=== PATIENT | female | born 1980 | race Caucasian/White ===

== ENCOUNTER 2017-05-04 11:12 | Emergency (ER) | payer BC, OTHER ==
[2017-05-04 11:30] VITALS: BP 127/62
--- NOTE | 2017-05-04 11:58 | UC ---
Abdominal Pain Female HPI - HPI Summary HPI Summary: 36 YO FEMALE HAS HAD INTERMITTENT LOWER ABD PAIN X 3 DAYS TODAY IT GOT SIGNIFICANTLY WORSEN (ACUTELY) BECAME DIAPHORETIC AND HAD VOMITING AND DIARRHEA HURTS TO MOVE NO UTI SYMPTOMS - History of Current Complaint Chief Complaint: UCAbdominalPain Stated Complaint: LOWER RT ABD PAIN/APPENDIX? Time Seen by Provider: 05/04/17 11:30 Hx Obtained From: Patient Hx Last Menstrual Period: 04/13/17 Onset/Duration: Sudden Onset, Lasting Days, Worse Since - THIS AM Severity Initially: Mild Severity Currently: Moderate - WAS SEVERE EARLIER Pain Intensity: 5 Pain Scale Used: 0-10 Numeric Location: Other - RLQ>>LLQ Radiates: No Character: Colicy Aggravating Factor(s): Movement Alleviating Factor(s): Nothing Associated Signs and Symptoms: Positive: Diaphoresis, Nausea, Vomiting, Diarrhea Allergies/Adverse Reactions: Allergies Allergy/AdvReac Type Severity Reaction Status Date / Time No Known Allergies Allergy Verified 05/04/17 11:30 PMH/Surg Hx/FS Hx/Imm Hx Previously Healthy: Yes - Surgical History Surgical History: None - Family History Known Family History: Positive: Hypertension, Other - NO FHX KIDNEY STONE - Social History Alcohol Use: None Substance Use Type: None Smoking Status (MU): Never Smoked Tobacco Have You Smoked in the Last Year: No - Immunization History Most Recent Influenza Vaccination: declined Most Recent Tetanus Shot: declined during Most Recent Pneumonia Vaccination: never Review of Systems Constitutional: Negative Skin: Negative Eyes: Negative ENT: Negative Respiratory: Negative Cardiovascular: Negative Gastrointestinal: Abdominal Pain, Vomiting, Diarrhea Genitourinary: Negative Motor: Negative Neurovascular: Negative Musculoskeletal: Negative Neurological: Negative Psychological: Negative All Other Systems Reviewed And Are Negative: Yes Physical Exam Triage Information Reviewed: Yes Appearance: Pain Distress Vital Signs: Initial Vital Signs Temp 98.6 F 05/04/17 11:25 Pulse 86 05/04/17 11:25 Resp 18 05/04/17 11:25 BP 127/62 05/04/17 11:25 Pulse Ox 100 05/04/17 11:25 Eye Exam: Normal ENT: Positive: Hearing grossly normal. Negative: Nasal congestion, Nasal drainage, Tonsillar swelling, Tonsillar exudate, Trismus, Muffled/hoarse voice Neck: Positive: Supple, Nontender, No Lymphadenopathy Respiratory: Positive: Lungs clear, Normal breath sounds, No respiratory distress, No accessory muscle use Cardiovascular: Positive: RRR, No Murmur, Pulses Normal Abdomen Description: Positive: No Organomegaly, Guarding. Negative: Nontender - MARKEDLY TENDER RLQ>>LLQ, CVA Tenderness (R), CVA Tenderness (L) Musculoskeletal: Positive: No Edema Neurological: Positive: Alert Psychological Exam: Normal Skin Exam: Normal Abd Pain Female Course/Dx - Course Course Of Treatment: URINE DIP (-), UHCG (-). I ADVISED TRANSFER TO [facility] FOR FURTHER EVALUATION. SHE FLATLY REFUSED EMS TRANSFER STATING SHE NEVER WOULD HAVE COME HERE HAD SHE KNOW WE COULDN'T EVALUATE HER HERE. ADVISED HER TO REMAIN NPO UNTIL SEEN - Differential Dx/Diagnosis Differential Diagnosis: Appendicitis, Diverticulitis, Ovarian Cyst, Pelvic Inflammatory Disease, Renal Colic, Other Provider Diagnoses: ABDOMINAL PAIN OF UNCERTAIN CAUSE Discharge - Discharge Plan Condition: Stable Disposition: HOME Patient Education Materials: Hand Fracture (ED) Referrals: Valdemar Macario MD [Medical Doctor] - As Soon As Possible Additional Instructions: non displaced fracture base of 5th metacarpal rest elevate ice
== END 2017-05-04 11:55 | disposition home or self-care (01) ==
LOC: UCEAST 11:12
DX: R10.31 Right lower quadrant pain (principal)
CPT/HCPCS: 81003; 84702; 99212; G0463

== ENCOUNTER 2017-05-04 12:18 | Emergency (ER) | payer BC ==
[2017-05-04 12:25] VITALS: BP 107/62
[2017-05-04] MEDS ORDERED: NS 0.9% 1000 ML* 1,000 ML IV ONE (12:42)
[2017-05-04 13:27] LABS: Hematocrit 44 % (35-47); Hemoglobin 15.1 g/dl (12.0-16.0); Mean Corpuscular HGB Conc 34 g/dl (31-36); Mean Corpuscular Hemoglobin 30 pg (27-31); Mean Corpuscular Volume 88 fL (80-97); Mean Platelet Volume 8 um3 (7.4-10.4); Red Blood Count 5.04 10^6/ul (4.0-5.4); Red Cell Distribution Width 13 % (10.5-15); White Blood Count 10.9 10^3/ul (3.5-10.8)
[2017-05-04 13:29] LABS: Urine Bilirubin Negative (Negative); Urine Glucose Negative (Negative); Urine Nitrite Negative (Negative)
[2017-05-04 13:44] LABS: ALT 10 U/L (7-52); AST 15 U/L (13-39); Albumin 4.2 g/dL (3.2-5.2); Alkaline Phosphatase 81 U/L (34-104); Anion Gap 7 mmol/L (2-11); BUN/Creatinine Ratio 15.9 (8-20); Blood Urea Nitrogen 11 mg/dL (6-24); CO2 Carbon Dioxide 23 mmol/L (22-32); Calcium 9.3 mg/dL (8.6-10.3); Chloride 105 mmol/L (101-111); EGFR African American 123.8 (>60); EGFR Non-African American 96.3 (>60); Glucose 104 mg/dL (70-100); Lipase < 10 U/L (11.0-82.0); Potassium 3.7 mmol/L (3.5-5.0); Sodium 135 mmol/L (133-145); Total Protein 7.2 g/dL (6.4-8.9)
--- NOTE | 2017-05-04 14:00 | RAD ---
HISTORY: Right lower quadrant pain COMPARISONS: None TECHNIQUE: Multiple transverse and longitudinal ultrasound images were obtained of the pelvis using grayscale, color Doppler, and spectral Doppler imaging using the transabdominal transducer. FINDINGS: UTERUS: The uterus measures 6.9 x 2.8 x 5.5 cm. The uterus is normal in shape, size, contour, and echotexture. ENDOMETRIUM: The endometrial stripe is smooth. The endometrium measures 0.7 cm in thickness. 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 CUL-DE-SAC: There is a small amount of simple fluid within the cul-de-sac. This may be physiologic in a reproductive age female. RIGHT OVARY: The right ovary measures 4.4 x 4.5 x 3.1 cm. There is a 4.4 x 2.4 x 4 cm simple right ovarian cyst. Normal arterial and venous waveforms are identifiable within the ovary on spectral Doppler imaging. LEFT OVARY: The left ovary measures 3.6 x 1.9 x 2.6 cm. Normal arterial and venous waveforms are identifiable within the ovary on spectral Doppler imaging. BLADDER: The bladder is not well visualized. IMPRESSION: 1. NO SONOGRAPHIC FEATURES OF TORSION. PLEASE NOTE THAT PARTIAL OR INTERMITTENT TORSION MAY BE SONOGRAPHICALLY NORMAL. 2. 4.4 CM RIGHT OVARIAN CYST. 3. SMALL AMOUNT OF FREE FLUID WITHIN THE CUL-DE-SAC. THIS MAY BE PHYSIOLOGIC WITHIN A REPRODUCTIVE AGE FEMALE
[2017-05-04] MEDS ORDERED: Iohexol 300* (CONTRAST) 10 ML SDV IV ONE (14:03)
--- NOTE | 2017-05-04 14:34 | ED ---
GI/ HPI - HPI Summary HPI Summary: 36F presents with intense RLQ pain for 3 days. She states today her pain became extreme and that she vomited once. She states she has had two normal BM without any change in pain. She denies any fever, dysuria, vaginal discharge, hematuira, flank pain, urgency, or frequency. She denies any constipation or diarrhea. She has never had this pain before. She states the pain starts in her RLQ and radiates to her LLQ. She states the pain is sharp in nature. She states she has never had this pain before but it feels most like labor pain. She denies any previous abdominal surgeries. She still has an appetite. Her last meal was this morning for breakfast. - History of Current Complaint Chief Complaint: EDAbdPain Time Seen by Provider: 05/04/17 12:28 Stated Complaint: ABD/BACK PAIN Pain Intensity: 3 - Allergy/Home Medications Allergies/Adverse Reactions: Allergies Allergy/AdvReac Type Severity Reaction Status Date / Time No Known Allergies Allergy Verified 05/04/17 11:30 PMH/Surg Hx/FS Hx/Imm Hx Endocrine/Hematology History: Denies: Hx Diabetes Cardiovascular History: Denies: Hx Hypertension History: Denies: Hx Renal Disease Psychiatric History: Reports: Hx Anxiety Infectious Disease History: No Infectious Disease History: Denies: Traveled Outside the [place] in Last 30 Days - Family History Known Family History: Positive: Hypertension, Other - NO FHX KIDNEY STONE - Social History Alcohol Use: None Substance Use Type: Reports: None Smoking Status (MU): Never Smoked Tobacco Have You Smoked in the Last Year: No Review of Systems Negative: Fever Negative: Chest Pain Negative: Shortness Of Breath Positive: Abdominal Pain, Vomiting, Nausea. Negative: Diarrhea Negative: flank pain All Other Systems Reviewed And Are Negative: Yes Physical Exam Triage Information Reviewed: Yes Vital Signs On Initial Exam: Initial Vitals Temp Pulse Resp BP Pulse Ox 97.6 F 80 16 107/62 99 05/04/17 12:22 05/04/17 12:22 05/04/17 12:22 05/04/17 12:22 05/04/17 12:22 Vital Signs Reviewed: Yes Appearance: Positive: Well-Appearing Skin: Positive: Warm, Dry Head/Face: Positive: Normal Head/Face Inspection Eyes: Positive: Normal, Conjunctiva Clear Respiratory/Lung Sounds: Positive: Clear to Auscultation, Breath Sounds Present Cardiovascular: Positive: Normal, RRR Abdomen Description: Positive: Soft, Other: - mild tenderness in RLQ, neg rovsings, obturator, no rebound tenderness Bowel Sounds: Positive: Present Diagnostics - Vital Signs Vital Signs Temp Pulse Resp BP Pulse Ox 05/04/17 13:51 97.6 F 80 16 107/62 99 05/04/17 12:22 97.6 F 80 16 107/62 99 - Laboratory Lab Results: Lab Results 05/04/17 05/04/17 05/04/17 Range/Units 13:15 13:15 13:15 WBC 10.9 H (3.5-10.8) 10^3/ul RBC 5.04 (4.0-5.4) 10^6/ul Hgb 15.1 (12.0-16.0) g/dl Hct 44 (35-47) % MCV 88 (80-97) fL MCH 30 (27-31) pg MCHC 34 (31-36) g/dl RDW 13 (10.5-15) % Plt Count 273 (150-450) 10^3/ul MPV 8 (7.4-10.4) um3 Neut % (Auto) 83.8 H (38-83) % Lymph % (Auto) 10.2 L (25-47) % [place] % (Auto) 5.1 (1-9) % Eos % (Auto) 0.3 (0-6) % Baso % (Auto) 0.6 (0-2) % Absolute Neuts (auto) 9.1 H (1.5-7.7) 10^3/ul Absolute Lymphs (auto) 1.1 (1.0-4.8) 10^3/ul Absolute Monos (auto) 0.6 (0-0.8) 10^3/ul Absolute Eos (auto) 0 (0-0.6) 10^3/ul Absolute Basos (auto) 0.1 (0-0.2) 10^3/ul Absolute Nucleated RBC 0.01 10^3/ul Nucleated RBC % 0.1 Sodium 135 (133-145) mmol/L Potassium 3.7 (3.5-5.0) mmol/L Chloride 105 (101-111) mmol/L Carbon Dioxide 23 (22-32) mmol/L Anion Gap 7 (2-11) mmol/L BUN 11 (6-24) mg/dL Creatinine 0.69 (0.51-0.95) mg/dL Est GFR ( Amer) 123.8 (>60) Est GFR (Non-Af Amer) 96.3 (>60) BUN/Creatinine Ratio 15.9 (8-20) Glucose 104 H (70-100) mg/dL Calcium 9.3 (8.6-10.3) mg/dL Total Bilirubin 0.40 (0.2-1.0) mg/dL AST 15 (13-39) U/L ALT 10 (7-52) U/L Alkaline Phosphatase 81 (34-104) U/L C-React Prot High Sens 2.93 mg/L Total Protein 7.2 (6.4-8.9) g/dL Albumin 4.2 (3.2-5.2) g/dL Globulin 3.0 (2-4) g/dL Albumin/Globulin Ratio 1.4 (1-3) Lipase < 10 L (11.0-82.0) U/L Beta HCG, Quant < 0.60 mIU/mL Urine Color Yellow Urine Appearance Clear Urine pH 6.0 (5-9) Ur Specific [place] 1.014 (1.010-1.030) Urine Protein Negative (Negative) Urine Ketones Negative (Negative) Urine Blood Negative (Negative) Urine Nitrate Negative (Negative) Urine Bilirubin Negative (Negative) Urine Urobilinogen Negative (Negative) Ur Leukocyte Esterase Negative (Negative) Urine Glucose Negative (Negative) Result Diagrams: 05/04/17 13:15 05/04/17 13:15 Lab Statement: Any lab studies that have been ordered have been reviewed, and results considered in the medical decision making process. - Ultrasound No standard instances Ultrasound Interpretation: Positive (See Comments) - IMPRESSION: 1. NO SONOGRAPHIC FEATURES OF TORSION. PLEASE NOTE THAT PARTIAL OR INTERMITTENT TORSION MAY BE SONOGRAPHICALLY NORMAL. 2. 4.4 CM RIGHT OVARIAN CYST. 3. SMALL AMOUNT OF FREE FLUID WITHIN THE CUL-DE-SAC. THIS MAY BE PHYSIOLOGIC WITHIN A REPRODUCTIVE AGE FEMALE Ultrasound Interpretation Completed By: Radiologist DANIELE Course/Dx - Course Assessment/Plan: 36F presents with intense RLQ pain for 3 days. She states today her pain became extreme and that she vomited once. She denies any other symptoms. She has never had this pain before. She states the pain starts in her RLQ and radiates to her LLQ. She denies any previous abdominal surgeries. She is concerned about her appendix. on exam neg appendicitis signs but is tender in RLQ, labs wbc 10.9, crp 2.2, u/a normal. u/s shows right cyst. explained to patient that only definitive way to know if not appendix is to do CT. patient drank contrast and now refuses CT. discussed pain likely from cyst but can not rule out appendicitis. patient states she is leaving. did not have patient sign out AMA but advised against leaving due to potenital for appendicitis can not be ruled out at this point. told if vomiting continues or develops fever to return to scan. patient understands and agrees with plan - Diagnoses Differential Diagnoses - Female: Appendicitis, Ovarian Cyst, Urinary Tract Infection Provider Diagnoses: Abdominal pain, Right ovarian cyst Discharge - Discharge Plan Condition: Good Disposition: HOME Patient Education Materials: Ovarian Cyst (ED) Referrals: [facility] [Outside] Additional Instructions: Take Tylenol or ibuprofen every 6 hours for pain Follow up with obgyn Return to ED if develop any new or worsening symptoms
== END 2017-05-04 14:52 | disposition home or self-care (01) ==
LOC: ED 12:18
DX: N83.201 Unspecified ovarian cyst, right side (principal); R10.31 Right lower quadrant pain; R11.2 Nausea with vomiting, unspecified
CPT/HCPCS: 36415; 76856; 80053; 81003; 83690; 84702; 85025; 86141; 99282

== ENCOUNTER 2018-03-13 19:38 | Inpatient (IN) | payer BC, OTHER ==
--- NOTE | 2018-03-13 20:36 | HP ---
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 CV Complaint: No Respiratory: Shortness of Breath: No Genitourinary: No Dysuria, No Bleeding Musculoskeletal: Back Pain, Contractions Neurological: No Headache, No Visual Changes Movement: Absent - Comments Patient with increase in nausea, no vomiting; "shaky". Loose stools x 48 hours. Last movement at 1300 today. Exam Allergies/Adverse Reactions: Allergies No Known Allergies Allergy (Verified 05/04/17 11:30) BP 143/113; HR 123; T 99.5; R 20 - Measurements Height: 5 ft 4 in Weight: 211 lb Weight in lbs: 211 Body Mass Index (BMI): 36.2 Pre- Weight: 180 lb Weight Gained This : 31 lbs and 0 ozs - Exam Abdomen: No Upper Quadrant Pain Breast: Breast Exam Deferred CVA: No CVA Tenderness Extremities: Edema - +2 bilateral pedal edema Heart: Normal Rhythm/Heart Sounds HEENT: No Significant Findings Lungs: Clear Bilaterally Rectal: Rectal Exam Deferred Thyroid: No Thyromegaly - Abdominal Exam Abdomen Exam: Non-Tender, Fundal Height Consistent with Dates - Ultrasound/Biophysical Profile Ultrasound Status: Not Done Targeted Exam Findings See L&D Outpatient Visit Provider Note for Findings: N/A Estimated Weight: 5lbs Cervical Exam: 2cm Effacement: 80% Station: 0, +1 Presenting Part: Vertex Membrane Status: Intact Bleeding/Discharge: None EFM Findings - External Monitor Findings External Monitor Findings Comment: Absent, demise Assessment/Plan - Reason for Visit Reason for Visit: Pt presents to L & D for induction of labor for confirmed demise at 36 3/ 7 wks in office today. - Obstetrical Risk Factors Obstetrical Risk Factors: Demise - Plan Plan: Induction - Date/Time of Admission Date of Admission: 03/13/18 Time of Admission: 20:46
[2018-03-13] MEDS ORDERED: Oxytocin in LR* 20 UNITS/1,000 ML BAG IVPB SCH (21:00)
[2018-03-13 21:12] LABS: ABS Basophils 0 10^3/ul (0-0.2); ABS Eosinophils 0 10^3/ul (0-0.6); ABS Lymphocytes 1.4 10^3/ul (1.0-4.8); ABS Monocytes 0.7 10^3/ul (0-0.8); ABS Neutrophils 11.8 10^3/ul (1.5-7.7); ABS Nucleated RBC 0 10^3/ul; Eosinophil % 0.1 % (0-6); Hematocrit 38 % (35-47); Hemoglobin 12.7 g/dl (12.0-16.0); Lymphocyte % 10.2 % (25-47); Mean Corpuscular HGB Conc 34 g/dl (31-36); Mean Corpuscular Hemoglobin 29 pg (27-31); Mean Corpuscular Volume 85 fL (80-97); Mean Platelet Volume 8.9 um3 (7.4-10.4); Nucleated Red Blood Cells % 0; Platelet Count 233 10^3/ul (150-450); Red Cell Distribution Width 14 % (10.5-15); White Blood Count 13.9 10^3/ul (3.5-10.8)
[2018-03-13 21:47] LABS: EGFR Non-African American 132.7 (>60)
[2018-03-13] MEDS ORDERED: OBEPIDURAL* 250 ML EPIDURAL ONE (23:29)
[2018-03-14 00:19] LABS: Platelet Count 240 10^3/ul (150-450)
[2018-03-14 00:47] LABS: INR 0.84 (0.77-1.02)
[2018-03-14 01:13] LABS: Schistocytes ABSENT
[2018-03-14] MEDS ORDERED: Sodium Citrate/Citric Acid* 15 ML UDC PO PRN (01:53)
[2018-03-14] MEDS ORDERED: Famotidine TAB* 20 MG PO PRN (01:53)
[2018-03-14] MEDS ORDERED: Phenylephrine IV* 40 MCG/ML 10 ML SYRINGE IV PUSH PRN (01:53)
[2018-03-14] MEDS ORDERED: OBEPIDURAL* 250 ML EPIDURAL SCH (02:00)
[2018-03-14] MEDS ORDERED: Acetaminophen TAB* 325 MG PO PRN (08:36)
[2018-03-14] MEDS ORDERED: Dibucaine 1% 28.35 GM TUBE PR PRN (08:36)
[2018-03-14] MEDS ORDERED: Ibuprofen TAB* 600 MG PO PRN (08:36)
[2018-03-14] MEDS ORDERED: Misoprostol TAB* 200 MCG PR ONE (08:36)
[2018-03-14] MEDS ORDERED: Witch Hazel PAD* JAR TOPICAL PRN (08:36)
[2018-03-14] MEDS ORDERED: Oxytocin in LR* 20 UNITS/1,000 ML BAG IVPB SCH (09:00)
[2018-03-14] MEDS: Docusate CAP* 100 MG PO SCH ×2 (11:39→16:48)
[2018-03-15 06:32] LABS: ABS Basophils 0 10^3/ul (0-0.2); ABS Eosinophils 0 10^3/ul (0-0.6); ABS Lymphocytes 1.6 10^3/ul (1.0-4.8); ABS Monocytes 0.7 10^3/ul (0-0.8); ABS Neutrophils 7.9 10^3/ul (1.5-7.7); ABS Nucleated RBC 0 10^3/ul; Eosinophil % 0.5 % (0-6); Hematocrit 33 % (35-47); Hemoglobin 11.3 g/dl (12.0-16.0); Lymphocyte % 15.8 % (25-47); Mean Corpuscular HGB Conc 34 g/dl (31-36); Mean Corpuscular Hemoglobin 29 pg (27-31); Mean Corpuscular Volume 86 fL (80-97); Mean Platelet Volume 8.6 um3 (7.4-10.4); Nucleated Red Blood Cells % 0; Platelet Count 215 10^3/ul (150-450); Red Blood Count 3.85 10^6/ul (4.0-5.4); Red Cell Distribution Width 14 % (10.5-15); White Blood Count 10.2 10^3/ul (3.5-10.8)
[2018-03-15 08:11] VITALS: BP 123/63
[2018-03-15] MEDS: Docusate CAP* 100 MG PO SCH (09:00)
[2018-03-15] MEDS ORDERED: Ferrous Gluconate TAB* 324 MG TAB PO SCH (09:00)
== END 2018-03-15 11:31 | disposition home or self-care (01) | DRG 560 ==
LOC: MCHOBOUT 19:38 → MCHOB 19:40
PROVIDERS: ADMIT Midwife; ATTEND Midwife
PROC: 10907ZC Drainage of Amniotic Fluid, Therapeutic from Products of Conception, Via Natural or Artificial Opening (ICD-10-PCS; principal; 2018-03-13)
PROC: 3E033VJ Introduction of Other Hormone into Peripheral Vein, Percutaneous Approach (ICD-10-PCS; 2018-03-13)
PROC: 10E0XZZ Delivery of Products of Conception, External Approach (ICD-10-PCS; 2018-03-13)
PROC: 4A1HX4Z Monitoring of Products of Conception, Cardiac Electrical Activity, External Approach (ICD-10-PCS; 2018-03-13)
DX: O36.4XX0 Maternal care for intrauterine death, not applicable or unspecified (principal); O34.03 Maternal care for unspecified congenital malformation of uterus, third trimester; Z3A.36 36 weeks gestation of pregnancy; Z37.1 Single stillbirth; Q51.2 Other doubling of uterus
CPT/HCPCS: 36415; 80053; 83030; 84439; 84443; 85025; 85049; 85362; 85384; 85610; 85613; 85730; 86644; 86645; 86777; 86778; 86850; 86900; 86901; 87070; 88307; A9270-GY

== ENCOUNTER 2018-04-20 07:36 | Emergency (ER) | payer OTHER ==
[2018-04-20 08:02] VITALS: BP 126/80
--- NOTE | 2018-04-20 10:16 | UC ---
Sheryl Segovia Elizabeth, scribed for Jaqueline Breaux DO on 04/20/18 at 0823 . Skin Complaint HPI - HPI Summary HPI Summary: This patient is a 37 year old F presenting to [facility] with a chief complaint of swelling and pain in her left toes since 1 week ago. The patient notes that for the two toes were initially itchy but resolved within the first 2 days. The patient reports that 4 days ago the toes became more inflamed, swollen, and red. The patient denies that the area of redness has increased in size. The patient rates the pain 8/10 in severity. Symptoms aggravated by bearing weight or palpation. The patient notes she has tried Epsom salt soaks in hot water but they have not alleviated her symptoms. Patient denies fever, chills, headache, cough, nausea, vomiting. - History of Current Complaint Time Seen by Provider: 04/20/18 07:49 Stated Complaint: FOOT COMPLAINT Hx Obtained From: Patient Hx Last Menstrual Period: 04/13/17 Onset/Duration: Gradual Onset, Lasting Weeks - 1 week ago, Still Present, Worse Since - 5 days ago Skin Exposure Onset/Duration: Weeks Ago - 1 week ago Timing: Constant Onset Severity: Mild Current Severity: Moderate Pain Intensity: 8 Pain Scale Used: 0-10 Numeric Location: Foot (Left) Character: Swelling, Redness Aggravating Factor(s): Touch, Other - bearing weight Alleviating Factor(s): Nothing Associated Signs & Symptoms: Negative: Nausea, Vomiting, Fever, Chills, Cough - Allergy/Home Medications Allergies/Adverse Reactions: Allergies Allergy/AdvReac Type Severity Reaction Status Date / Time No Known Allergies Allergy Verified 04/20/18 07:56 Home Medications: Home Medications diPHENhydraMINE PO* [Benadryl PO 25 MG TAB*] 50 mg PO ONCE PRN 04/20/18 [ History Confirmed 04/20/18] Review of Systems Constitutional: Negative - NEGATIVE FEVER, NEGATIVE CHILLS Skin: Rash - redness on left toes Respiratory: Negative - NEGATIVE COUGH Gastrointestinal: Negative - NEGATIVE VOMITING, NEGATIVE NAUSEA Musculoskeletal: Edema - in left toes Neurological: Negative - NEGATIVE HEADACHE All Other Systems Reviewed And Are Negative: Yes PMH/Surg Hx/FS Hx/Imm Hx Other Endocrine History: NEGATIVE DIABETES Other GI/ History: ovarian cyst - Surgical History Surgical History: None - Family History Known Family History: Positive: Hypertension, Other - NO FHX KIDNEY STONE - Social History Alcohol Use: None Substance Use Type: None Smoking Status (MU): Never Smoked Tobacco Have You Smoked in the Last Year: No - Immunization History Most Recent Influenza Vaccination: declined Most Recent Tetanus Shot: declined during Most Recent Pneumonia Vaccination: never Physical Exam - Summary Physical Exam Summary: Appearance: Well-Appearing, No Pain Distress, Well-Nourished Eyes: conjunctiva clear, no discharge ENT: Hearing grossly normal, no muffled/hoarse voice. Neck: Normal, Supple Respiratory/Lung Sounds: Lungs clear, Normal breath sounds, No respiratory distress, No accessory muscle use Cardiovascular: RRR, No murmur Musculoskeletal: left 4th and 5th toes and adjacent forefoot exquisitely tender to palpation and ROM, Neurological: Alert, muscle tone normal Psychiatric:Normal, age appropriate behavior Skin: Dry, 9cm area of erythema over the dorsal aspect over the 4th and 5th toes and adjacent forefoot, hot to the touch Triage Information Reviewed: Yes Vital Signs Reviewed: Yes Course/Dx - Course Course Of Treatment: This patient is a 37 year old F reporting redness, swelling and pain in her left toes since 1 week ago. The patient notes that for the two toes were initially itchy but resolved within the first 2 days. In the [facility] course the patient was given an ice pack. Patient will be discharged with prescription for Cephalexin and follow up from [facility]. The patient is agreeable with this plan. Medications reviewed. Allergies reviewed. - Diagnoses Provider Diagnoses: cellulitis Discharge - Sign-Out/Discharge Documenting (check all that apply): Discharge/Admit/Transfer - Discharge Plan Condition: Stable Disposition: HOME Discharge Disposition Comment: discharge home Patient Education Materials: Cellulitis (ED) Referrals: No Primary Care Phys,NOPCP [Primary Care Provider] - 2 Days [facility] [Outside] Additional Instructions: CEPHALEXIN: The antibiotic you've been prescribed is a member of the cephalosporin class. This type of antibiotic covers a wide variety of infections, including those of the skin, lungs, and urinary tract. It's useful for staph infections. This antibiotic is slightly similar to the penicillin family. In rare cases , a person who is allergic to penicillin will also be allergic to this medication. If you have had a severe allergic reaction to penicillin, and have not taken this antibiotic since that time, notify your doctor. Antibiotics which cover many germs ("broad spectrum" antibiotics) are more likely to cause diarrhea or "yeast" infections. Women prone to vaginal yeast problems may suffer an attack after taking this antibiotic. In infants, oral thrush (white spots "stuck" on the cheek) or yeast diaper rash may result. See your doctor if these problems occur. Call at once if you develop itching, hives , shortness of breath, or lightheadedness. ANYTIME YOU TAKE AN ANTIBIOTIC, IT IS IMPORTANT TO REPLENISH THE BODY'S SUPPLY OF "GOOD BACTERIA." YOU CAN GET GOOD BACTERIA FROM HIGH QUALITY CULTURED FOODS SUCH LOCAL YOGURT, SOUR KRAUT, [place] SUSANNE, NATURALLY FERMENTED PICKLES AND PROBIOTIC DRINKS. YOU CAN ALSO GET GOOD BACTERIA FROM A PROBIOTIC SUPPLEMENT. FOLLOW-UP CARE: You should establish with a private physician for follow-up care in 2 days. If you are unable to get a timely appointment, or if you are worsening, call us or return for re-evaluation. An additional resource available to assist in finding the appropriate physician for your health care needs is the [facility]erral Center. You may contact them by calling [phone]. The documentation as recorded by the Sheryl matos Elizabeth accurately reflects the service I personally performed and the decisions made by me, Jaqueline Breaux DO.
[2018-04-20 14:08] LABS: Uric Acid 5.9 mg/dL (2.3-6.6)
== END 2018-04-20 08:35 | disposition home or self-care (01) ==
LOC: UCEAST 07:36
DX: L03.032 Cellulitis of left toe (principal); Z82.49 Family history of ischemic heart disease and other diseases of the circulatory system
CPT/HCPCS: 36415; 84550; 85652; 86141; 99211; G0463

== ENCOUNTER 2019-04-02 11:05 | Observation (INO) | payer BC ==
--- NOTE | 2019-04-02 10:30 | PN ---
L&D Outpatient: Visit - Reproductive Information Estimated Due Date: 06/25/19 Gestational Age: 28 Weeks and 0 Days : 3 Para: 2 - Reason for Visit Visit Reason: pt with episode of leaking yesterday night - Antepartal Records Antepartal Record: Reviewed, Uncomplicated - up till now - Patient History Patient History Significant: Yes Patient History Significant For: iufd at term last hemorrhage 1 st Review of Systems Constitutional: Comfortable CV Complaint: No Respiratory: Shortness of Breath: No Gastrointestinal: Diarrhea Genitourinary: Bleeding, Leaking Fluid, No Dysuria Musculoskeletal: No Complaint Neurological: No Headache Movement: Normal L&D Outpatient: Exam Vitals - Most Recent: fhr 135 Lab Values - Entire Visit: ROM + is positive for membrane rupture - Cervical Exam Cervical Exam: 3 cm/ 80%/ -2 - Abdominal Exam Abdomen Exam: Non-Tender, Fundal Height Consistent with Dates - Membranes Membrane Status: SROM Hours Since SROM: 11 - Ultrasound/Biophysical Profile Ultrasound Status: Bedside Exam Biophysical Profile: Normal Gross Body Movements, Normal Muscle Tone, Normal Reactive NST, Abnormal Amniotic Fluid - low fluid, Abnormal Breathing - too early - Exam Findings abdomen nontender EFM Findings - External Monitor Findings Baseline Heart Rate: 135 External Monitor Findings: Accelerations Present, Variability Moderate Contractions: Irregular, Mild, < 45 Seconds L&D Outpatient: Asses/Plan Assessment: [age] yo at 28 weeks with pprom/ d/w Strong and agreed to transfer will check visually prior to transfer accepting dr Chris Puentes received betamenthasone 12mg im azthromycin 1 gm/ then ampicilin 2gms q 6hrs starting magnesium 4 gm bolus and 2 gms /hr - Discharge Diagnosis Discharge Diagnosis: Other - PPROM at 28 weeks Plan: Transfer to Other Facility - [facility]
[2019-04-02 12:01] LABS: Urine Appearance Cloudy; Urine Bacteria Absent (Absent); Urine Bilirubin Negative (Negative); Urine Blood 1+ (Negative); Urine Color Yellow; Urine Glucose Negative (Negative); Urine Ketones 2+ (Negative); Urine Nitrite Negative (Negative); Urine Protein Negative (Negative); Urine Red Blood Cell 2+(6-10/hpf) (Absent); Urine Specific Gravity 1.019 (1.010-1.030); Urine Squamous Epithelial Cell Present (Absent); Urine Urobilinogen Negative (Negative); Urine White Blood Cell Trace(0-5/hpf) (Absent)
[2019-04-02] MEDS ORDERED: Azithromycin TAB* 250 MG PO ONE (12:02)
[2019-04-02] MEDS ORDERED: Magnesium Sulf 4 GM/100 ML IV* 4,000 MG/100 ML BAG IVPB ONE (12:05)
[2019-04-02] MEDS ORDERED: Betamethasone INJ* 6 MG/ML 5 ML VIAL (30 MG) IM ONE (12:05)
[2019-04-02] MEDS ORDERED: NS 0.9% 100 ML* 100 ML ONE ×2 (12:09→12:32)
[2019-04-02 12:56] LABS: ABS Lymphocytes 0.8 10^3/ul (1.0-4.8); ABS Monocytes 0.5 10^3/ul (0-0.8); ABS Neutrophils 8.2 10^3/ul (1.5-7.7); Eosinophil % 0.3 %; Hematocrit 39 % (35-47); Hemoglobin 13.9 g/dL (12.0-16.0); Lymphocyte % 8.3 %; Mean Corpuscular HGB Conc 35 g/dL (31-36); Mean Corpuscular Hemoglobin 31 pg (27-31); Mean Corpuscular Volume 88 fL (80-97); Mean Platelet Volume 8.7 fL (7.4-10.4); Platelet Count 232 10^3/uL (150-450); Red Blood Count 4.46 10^6 /uL (3.70-4.87); Red Cell Distribution Width 13 % (10.5-15); White Blood Count 9.6 10^3/uL (3.5-10.8)
[2019-04-02] MEDS ORDERED: Magnesium Sulfate OB PREMIX* 40 GM/1,000 ML BAG IVPB SCH (13:00)
[2019-04-02] MEDS ORDERED: Ampicillin ADVAN(*) 2 GM in NS 0.9% 100 ML* 100 ML IVPB SCH (13:00)
--- NOTE | 2019-04-02 13:02 | HP ---
General Information - Reason for Visit 38 yo at 28 weeks with srom at 2 am. no contractions. some bloody show. continued leaking - General Information Maternal Age: 38 Grav: 3 Para: 2 SAB: 0 IEA: 0 Estimated Due Date: 06/25/19 Determined By: LMP Maternal Blood Type and Rh: A Positive - Results this Serology/RPR Result: Non-Reactive Rubella Result: Immune HBsAg Result: Negative HIV Result: Negative GBS Culture Result: Negative Past Medical History Delivery History: Hx Complicated Vaginal Delivery, See Records Pertinent Past Medical History: See Records Pertinent Past Surgical History: See Records Pertinent Family History: See Records - Antepartal Records Antepartal Records: Reviewed, Uncomplicated - this pregnnacy uncomplicated to this point Review of Systems Constitutional: Comfortable CV Complaint: No Respiratory: Shortness of Breath: No Gastrointestinal: Diarrhea - 2days ago Genitourinary: Bleeding, Leaking Fluid - since 2 am Musculoskeletal: No Complaint Neurological: No Headache Movement: Normal Exam Allergies/Adverse Reactions: Allergies No Known Allergies Allergy (Verified 04/20/18 07:56) Lab Values - Entire Visit: Laboratory Tests 04/02/19 04/02/19 04/02/19 11:15 11:15 12:25 WBC 9.6 RBC 4.46 Hgb 13.9 Hct 39 MCV 88 MCH 31 MCHC 35 RDW 13 Plt Count 232 MPV 8.7 Neut % (Auto) 85.8 Lymph % (Auto) 8.3 [place] % (Auto) 5.3 Eos % (Auto) 0.3 Baso % (Auto) 0.3 Absolute Neuts (auto) 8.2 H Absolute Lymphs (auto) 0.8 L Absolute Monos (auto) 0.5 Absolute Eos (auto) 0.0 Absolute Basos (auto) 0.0 Absolute Nucleated RBC 0.0 Nucleated RBC % 0.0 Urine Color Yellow Urine Appearance Cloudy Urine pH 6.0 Ur Specific [place] 1.019 Urine Protein Negative Urine Ketones 2+ A Urine Blood 1+ A Urine Nitrate Negative Urine Bilirubin Negative Urine Urobilinogen Negative Ur Leukocyte Esterase Negative Urine WBC (Auto) Trace(0-5/hpf) Urine RBC (Auto) 2+(6-10/hpf) A Ur Squamous Epith Cells Present A Urine Bacteria Absent Urine Glucose Negative Vag Amniotic Fld Detect Positive - Measurements Height: 5 ft 4 in Weight: 194 lb Weight in lbs: [phone] Body Mass Index (BMI): 33.3 Pre- Weight: 185 lb Weight Gained This : 9 lbs and 0 ozs - Exam CVA: No CVA Tenderness Extremities: No Edema Heart: Normal Rhythm/Heart Sounds HEENT: No Significant Findings Lungs: Clear Bilaterally Rectal: Rectal Exam Deferred Reflexes: DTR 2+ Targeted Exam Findings See L&D Outpatient Visit Provider Note for Findings: Yes Estimated Weight: 800gm Cervical Exam: 3cm Effacement: 80% Station: -1 Presenting Part: Vertex Membrane Status: Leaking Amniotic Fluid Evaluation: Gross Rupture, Positive ROM Plus EFM Findings - External Monitor Findings Baseline Heart Rate: 135 External Monitor Findings: Accelerations Present, Variability Moderate Contractions: Irregular, Mild, < 45 Seconds Assessment/Plan - Obstetrical Risk Factors Obstetrical Risk Factors: - 28 weeks pprom/ will transfer - Plan Plan: Antibiotic Prophylaxis - azthromycin 1 gm/ ampicillin 2gm q 6hrs, Steroids - 12 mg im betamethasone x 1 now, Mag Sulfate - 4gm bolus and 2 gm/hr in transport, [facility] - accepted by [facility]
--- NOTE | 2019-04-02 13:49 | PN ---
Progress Note - Progress Note Date of Service: 04/02/19 Note: Sterile speculum just prior to transfer . able to see thick cervix. no significant change in dilation visualized
--- NOTE | 2019-04-04 11:36 | DS ---
DISCHARGE SUMMARY: DATE OF ADMISSION: 04/02/19 DATE OF DISCHARGE: 04/02/19 PRINCIPAL DIAGNOSIS: premature ruptured membranes at 28 weeks. COMPLICATIONS: None. The patient was transferred to [facility] for higher level of care. She was transferred on ampicillin 2 g IM q.6 and magnesium sulfate 2 g an hour. She has gotten 1 dose of betamethasone. HISTORY: This is a 38-year-old with a previous 3 para 2 with a previous stillbirth at 36 wee or. Prior to that she also had hemorrhage in her first . She presented with a u ncomplicated third up until the point of ruptured membranes. Her ROM plus was positive. A ntibiotics were started. Steroids were started and magnesium was started and she was transferred to [facility] under the care of the perinatologist there. Significant lab values include ROM Plus that was positive. She was stable at the time of discharge. [id number]/[facility] #: [id number]
== END 2019-04-02 13:57 | disposition short-term general hospital (02) ==
LOC: MCHOBOUT 11:05 → UNDOADMIN 11:52 → MCHOB 11:52 → INTOOBSV 11:52 → UNDODISIN 13:57
PROVIDERS: ADMIT Obstetrics & Gynecology; ATTEND Obstetrics & Gynecology
DX: O42.913 Preterm premature rupture of membranes, unspecified as to length of time between rupture and onset of labor, third trimester (principal); Z3A.28 28 weeks gestation of pregnancy
CPT/HCPCS: 81003; 81015; 84112; 85025; 86850; 86900; 86901; 87070; 87086; 96372; A9270-GY; G0378; J0702; J3475